=== PATIENT | female | born 1995 | race Caucasian/White ===

== ENCOUNTER 2021-04-15 11:19 | Observation (INO) | payer OTHER, SELFPAY ==
[2021-04-15] VITALS (7 sets, daily range): BP systolic 83–117; BP diastolic 58–82; PULSE 94–126; BMI 33.0
--- NOTE | 2021-04-15 12:40 | OBADM ---
This patient, Kinza Del Castillo, admitted to the OB room 118 at 1119 for observation for contractions. Patient/family oriented to hospital policies and general routines including ID bracelet, bed and alarms, visiting hours, pain management, procedures, bathroom and other care routines, personal items, smoking policy, room service/diet, and visiting hours. Patient/Family are encouraged to report perceived risks to care and to ask questions if they do not understand what they are told or what they should do.
[2021-04-15] MEDS: TERBUTALINE SULFATE 1 MG/ML VIAL 0.25 MG SUB-Q ×2 (12:43→17:31)
[2021-04-15] MEDS: NIFEdipine 10 MG CAPSULE PO (15:44)
[2021-04-15 15:58] LABS: Add Urine Microscopic? YES; Appearance Urine Clear (Clear); Bilirubin Urine Negative (Negative); Blood Urine Negative (Negative); Color Urine Colorless (Yellow); Glucose Urine UA Negative (Negative); Ketones Urine Trace mg/dL (Negative); Leukocyte Esterase Ur Negative LEU/UL (Negative); Nitrate Urine Negative (Negative); Protein Urine Negative (Negative); RBC Urine 0-2 /hpf (0-2); Squamous Epithelial Cell Urine Rare /hpf (Few); Urobilinogen Urine Negative mg/dL (<2.0); WBC Urine 0-3 /hpf
[2021-04-15 15:59] LABS: Specific Grav Ur 1.002 (1.001-1.035)
--- NOTE | 2021-04-25 07:38 | PM.OBTRLD ---
OB - Triage/Final Diagnosis Visit Information Comments/Additional reasons for admission: I have assessed the risk for this patient, Kinza Del Castillo, and determined that she would benefit from observation care. Evaluation Laboratory results: Laboratory Tests 04/15/21 15:47 Urine Color Colorless Urine Appearance Clear Urine pH 7.0 Ur Specific [place] 1.002 Urine Protein Negative Urine Glucose (UA) Negative Urine Ketones Trace Ur Blood (Man) Negative Urine Nitrate Negative Urine Bilirubin Negative Urine Urobilinogen Negative Leukocyte Esterase Rfl Negative Urine RBC 0-2 Urine WBC 0-3 Ur Squamous Epith Cells Rare Final Diagnosis (1) contractions: Code(s): O47.9 - False labor, unspecified Status: Acute
== END 2021-04-15 18:26 | disposition home or self-care (01) ==
PROVIDERS: Admitting Provider Obstetrics & Gynecology; Visit Provider Obstetrics & Gynecology
DX: O47.03 False labor before 37 completed weeks of gestation, third trimester (principal); Z3A.33 33 weeks gestation of pregnancy
CPT/HCPCS: 81001; 96372; A9270; G0378; G0379; J3105

== ENCOUNTER 2021-05-06 11:59 | Observation (INO) | payer OTHER, SELFPAY ==
--- NOTE | ~2021-05-06 | US_ITS ---
EXAMINATION: US OB limited w BPP DATE: 05/06/2021 13:39 INDICATION: Tachycardia. Third trimester. TECHNIQUE: Real-time pelvic ultrasound was performed. COMPARISON: None. FINDINGS: There is a single living fetus in vertex presentation. The placenta is anterior. heart rate is 154 beats per minute (bpm). The amniotic fluid index is 14.9 cm, which is normal. Biophysical profile performed by the technologist: breathing (30 sec sustained breathing in 30 minutes): 2 out of 2 movement (3 gross body movements in 30 minutes): 2 out of 2 tone (one episode of ppzsitj-zoizssxrg-drfujqv limb movement): 2 out of 2 Amniotic fluid pocket (2 cm): 2 out of 2 Total score: 8 out of 8 IMPRESSION: 1. Single living fetus in vertex presentation. 2. Biophysical profile 8 out of 8. Reviewed, dictated and finalized at location A.
[2021-05-06 12:45] VITALS: BP 114/73; PULSE 106
[2021-05-06 13:00] VITALS: BP 115/67; PULSE 92
[2021-05-06 13:15] VITALS: BP 111/62; PULSE 91
[2021-05-06 14:50] VITALS: BMI 33.7
--- NOTE | 2021-05-06 14:52 | OBADM ---
This patient, Kinza Del Castillo, admitted to the OB room OB Post 117 for observation. Patient/family oriented to hospital policies and general routines including ID bracelet, bed and alarms, visiting hours, pain management, procedures, bathroom and other care routines, personal items, smoking policy, room service/diet, and visiting hours. Patient/Family are encouraged to report perceived risks to care and to ask questions if they do not understand what they are told or what they should do.
--- NOTE | 2021-05-09 17:21 | PM.OBTRLD ---
OB - Triage/Final Diagnosis Visit Information Comments/Additional reasons for admission: I have assessed the risk for this patient, Kinza Del Castillo, and determined that she would benefit from observation care. Final Diagnosis (1) Maternal care for tachycardia during : Code(s): O36.8390 - Maternal care for abnormalities of the heart rate or rhythm, unspecified trimester, not applicable or unspecified Status: Acute
== END 2021-05-06 14:50 | disposition home or self-care (01) ==
PROVIDERS: Admitting Provider Obstetrics & Gynecology; Visit Provider Obstetrics & Gynecology
DX: O36.8390 Maternal care for abnormalities of the fetal heart rate or rhythm, unspecified trimester, not applicable or unspecified (principal); Z3A.00 Weeks of gestation of pregnancy not specified
CPT/HCPCS: 76815; 76819; G0378; G0379

== ENCOUNTER 2021-05-20 11:26 | Outpatient (RCR) | payer OTHER, SELFPAY ==
[2021-04-01 13:48] VITALS: BP 110/69; PULSE 91
[2021-05-13 19:06] VITALS: BP 101/72; PULSE 108
[2021-05-17 11:18] VITALS: BP 117/67; PULSE 108
[2021-05-20 11:53] VITALS: BP 111/67; PULSE 91
== END 2021-06-01 10:14 | disposition home or self-care (01) ==
LOC: ANHOBOP 11:26
PROVIDERS: Visit Provider Obstetrics & Gynecology
DX: O36.8330 Maternal care for abnormalities of the fetal heart rate or rhythm, third trimester, not applicable or unspecified (principal); Z3A.31 31 weeks gestation of pregnancy; Z3A.36 36 weeks gestation of pregnancy; Z3A.37 37 weeks gestation of pregnancy
CPT/HCPCS: 59025

== ENCOUNTER 2021-05-29 05:54 | Inpatient (IN) | payer OTHER, SELFPAY ==
[2021-05-02 10:37] VITALS: BMI 33.3
[2021-05-29] VITALS (105 sets, daily range): BP systolic 80–136; BP diastolic 30–82; PULSE 59–143; RESP 16; TEMP 36.6–36.9; O2SAT 73–100; BMI 34.0
--- NOTE | 2021-05-29 06:45 | LDADM ---
This patient, Kinza Del Castillo, was admitted to Labor/Delivery/Recovery 106 on 05/29/21 at 05:54. Plans for labor, pain management and were discussed with patient. Patient/family oriented to hospital policies and general routines including ID bracelet, bed and alarms, visiting hours, pain management, procedures, bathroom and other care routines, personal items, smoking policy, room service/diet and guest tray routines, security routines, and visiting hours. Patient/Family are encouraged to report perceived risks to care and to ask questions if they do not understand what they are told or what they should do. See OBIX for further documentation.
[2021-05-29 07:01] LABS: Basophils Percent Auto 0.4 % (0.2-1.2); Eosinophils Absolute Auto 0.2 K/mm3 (0-0.3); Eosinophils Percent Auto 1.6 % (0-4.4); Hemoglobin 11.3 g/dL (12.0-15.0); Immature Granulocyte Absolute 0.06 K/mm3 (0.00-0.031); Immature Granulocyte Percent A 0.6 % (0-0.5); Lymphocytes Absolute Auto 2.33 K/mm3 (0.9-3.2); Lymphocytes Percent Auto 24.3 % (18.3-44.2); Mean Corpuscular HGB Conc 32.3 g/dl (32-36); Mean Corpuscular Hemoglobin 25.9 pg (26-34); Mean Corpuscular Volume 80.3 fl (80-100); Mean Platelet Volume 9.2 fl (7.4-10.4); Monocytes Absolute Auto 0.7 K/mm3 (0.1-0.6); Monocytes Percent Auto 7.3 % (2.6-8.5); Neutrophils Absolute Auto 6.3 K/mm3 (1.3-6.7); Neutrophils Percent Auto 65.8 % (45.5-73.1); Platelet Count Result 322 k/mm3 (150-375); Red Blood Count 4.36 M/mm3 (4.2-5.4); Red Cell Distribution Width 13.8 % (11.5-14.5); White Blood Count 9.6 K/mm3 (4.5-10.0)
[2021-05-29] MEDS: OXYTOCIN 30 UNITS/NS 500 ML 30 UNITS/500 ML BAG IV CONT (07:20)
[2021-05-29] MEDS: LACTATED RINGERS 1,000 ML 125 ML IV CONT ×2 (07:20→12:42)
--- NOTE | 2021-05-29 08:06 | PM.IMHP ---
H&P: HPI History of Present Illness Date/Time: 05/29/21 08:06 Everardo is a 25yo @ 39.0wks (BRODY 06/05/21) who presents for induction of labor. She has had regular care with Benjamín BOSTON. She reports good movement. Irregular ctx. No VB or LOF. Her has been complicated by: - H/o pyelectasis; resolved in 3rd trimester, normal fluid/growth - Intermittent tachycardia; s/p normal ANT Chief Complaint: Induction of labor Review of Systems Review of Systems: All systems reviewed & are unremarkable except as noted in HPI and below (HPI) [facility] Family History Family History Other Unknown family medical history Social History Social History Smoking status: Former smoker Tobacco type: cigarettes and e-cigarettes/vaping Second hand tobacco smoke exposure: No Smoking end date: 12/28/20 Substance use: never Gender identity (if verbalized by the patient): Female Sexual Orientation (if Verbalized by the Patient): Straight or Heterosexual Spiritual care concerns: No Meds Home Medications and Allergies Home Medications Medication Instructions Recorded Confirmed Type tablet PO 05/03/21 History Allergies Allergy/AdvReac Type Severity Reaction Status Date / Time No Known Allergies Allergy Unverified 10/27/16 13:39 Vital Signs Vital Signs - 24 hr 05/29/21 06:14 05/29/21 06:16 05/29/21 06:17 Pulse Rate 111 H 121 H Blood Pressure 136/75 132/82 Pulse Oximetry 86 L 82 L 05/29/21 06:20 05/29/21 06:25 05/29/21 06:30 Pulse Rate Blood Pressure Pulse Oximetry 91 91 92 05/29/21 06:31 05/29/21 06:35 05/29/21 06:40 Pulse Rate 111 H Blood Pressure 126/73 Pulse Oximetry 94 92 05/29/21 06:42 05/29/21 06:46 05/29/21 07:01 Pulse Rate 110 H 105 H Blood Pressure 133/75 117/61 Pulse Oximetry 83 L 05/29/21 07:16 05/29/21 07:31 05/29/21 08:01 Pulse Rate 97 91 92 Blood Pressure 121/67 123/73 123/81 Pulse Oximetry Exam Const: General: cooperative, healthy appearing, comfortable and no acute distress Resp: Effort & Inspection: normal respiratory effort and able to speak in complete sentences Cardio: Rate: regular rate GI: Inspection: normal to inspection and non-distended GI Palp: No abdominal tenderness and Yes Soft to palpation : Other: FHT's: 150's/ mod kwadwo/ + accels/ no decels - cat 1 TOCO: ctxq2-4min Cervix: 1.5/50/-2 Membranes: intact, GBS neg Presentation: cephalic Skin: General skin exam: normal color Neuro: General: patient oriented x3 Extrem: General: normal to inspection Psych: Appearance: grossly normal Affect: normal affect Attitude: cooperative H&P: Results Labs Labs: Short CBC 05/29/21 Range/Units 06:54 WBC 9.6 (4.5-10.0) K/mm3 Hgb 11.3 L (12.0-15.0) g/dL Hct 35.0 L (37.0-47.0) % Plt Count 322 (150-375) k/mm3 Assessment and Plan Assessment and plan (1) Encounter for induction of labor: Code(s): Z34.90 - Encounter for supervision of normal , unspecified, unspecified trimester Status: Acute (2) : Qualifiers: Weeks of gestation: 39 weeks Qualified Code(s): Z3A.39 - 39 weeks gestation of Code(s): Z34.90 - Encounter for supervision of normal , unspecified, unspecified trimester Status: Acute Additional Plan - Induction of labor - Pitocin induction per protocol - Continuous monitoring; currently reassuring - GBS neg - Anesthesia consult PRN pain
--- NOTE | 2021-05-29 08:23 | WPDHPUPDATE1 ---
History and Physical Update Update Date/Time: 05/29/21 08:23 History and Physical has been reviewed, including an updated exam of the patient. There are NO changes in the patient's condition. Risks, benefits, and alternatives have been discussed and questions answered. Patient agrees to proceed with procedure.
--- NOTE | 2021-05-29 10:32 | P.PNAN_ITS ---
Anes - Eval Pre Procedure Procedure: labor epidural Date/Time: 05/29/21 10:32 Surgeon: isaak Pre Op Diagnosis: IOL Patient Data Age: 25 Gender: F Height: 1.63 m Weight: 90 kg Last Vital Signs Pulse 87 05/29/21 10:31 BP 128/71 05/29/21 10:31 Pulse Ox 83 L 05/29/21 06:42 Allergies Allergy/AdvReac Type Severity Reaction Status Date / Time No Known Allergies Allergy Unverified 10/27/16 13:39 Home Medications Medication Instructions Recorded Confirmed Type tablet PO 05/03/21 History Laboratory Tests 05/29/21 05/29/21 05/29/21 06:54 06:54 06:54 WBC 9.6 K/mm3 K/mm3 (4.5-10.0) RBC 4.36 M/mm3 M/mm3 (4.2-5.4) Hgb 11.3 g/dL L g/dL (12.0-15.0) Hct 35.0 % L % (37.0-47.0) MCV 80.3 fl fl (80-100) MCH 25.9 pg L pg (26-34) MCHC 32.3 g/dl g/dl (32-36) RDW 13.8 % % (11.5-14.5) Plt Count 322 k/mm3 k/mm3 (150-375) MPV 9.2 fl fl (7.4-10.4) Immature Gran % (Auto) 0.6 % H % (0-0.5) Neut % (Auto) 65.8 % % (45.5-73.1) Lymph % (Auto) 24.3 % % (18.3-44.2) Weld % (Auto) 7.3 % % (2.6-8.5) Eos % (Auto) 1.6 % % (0-4.4) Baso % (Auto) 0.4 % % (0.2-1.2) Lymph # (Auto) 2.33 K/mm3 K/mm3 (0.9-3.2) Weld # (Auto) 0.7 K/mm3 H K/mm3 (0.1-0.6) Eos # (Auto) 0.2 K/mm3 K/mm3 (0-0.3) Baso # (Auto) 0.0 K/mm3 K/mm3 (0.0-0.1) Abs Immat Gran (auto) 0.06 K/mm3 H K/mm3 (0.00-0.031) Absolute Neuts (auto) 6.3 K/mm3 K/mm3 (1.3-6.7) Absolute Nucleated RBC 0.0 K/mm3 K/mm3 (0.0-0.012) Nucleated RBC % 0.0 % % (0.0-0.2) RPR Pending Blood Type O Positive Antibody Screen Negative Patient hx anesthesia problems: none Family hx anesthesia problems: none [facility] Family History Family History Other Unknown family medical history Social History Social History Smoking status: Former smoker Tobacco type: cigarettes and e-cigarettes/vaping Second hand tobacco smoke exposure: No Smoking end date: 12/28/20 Substance use: never Gender identity (if verbalized by the patient): Female Sexual Orientation (if Verbalized by the Patient): Straight or Heterosexual Spiritual care concerns: No Exam Day of Procedure 05/29/21 10:32
--- NOTE | 2021-05-29 12:32 | PM.OBPNLAB ---
Pain Control Date/time seen: 05/29/21 12:32 Pain control: tolerating well Comments: wanting epidural Pelvic Exam Dilation (cm): 3 (.5) Effacement (%): 50 station: -2 Amniotic membrane status: Ruptured (AROM, clear 1230) Contractions Monitor mode: External Contraction frequency: 3 Contraction pattern: Regular Status status: Category l Assessment and Plan Pitocin rate (mU/min): 10 Assessment: induction ongoing Plan: continuous present management Comments: - epidural for pain control
--- NOTE | 2021-05-29 17:56 | PM.OBPRVD ---
OB - Delivery Note Procedure Delivery date: 05/29/21 events: Labor Induction Intrapartal events: Deceleration Induction method: per pitocin protocol Delivery augmentation: rupture of membranes Delivery monitor: external FHT and external uterine Route of delivery: Laceration Description: Perineal - 1st Degree Delivery repair: vicryl Quantitative Blood Loss (ml): 150 Anesthesia type: Epidural Disposition: floor Baby Date of : 05/29/21 Time of : 17:36 Weeks of gestation at delivery: 39 gender: Male Weight (pounds): 7 Weight (ounces): 8 presentation: vertex position: Left Occiput Anterior Placenta delivery description: Expressed cord vessel description: 3 Vessels, Nuchal Cord, Loose, Reduced and Delayed Cord Clamping score one minute: 9 score five minutes: 9 Narrative: heart decelerations were noted, and the patient was examined and found to be completely dilated. With good maternal effort and after pushing for two contractions, she delivered the head over intact perineum. A loose nuchal cord was palpated and reduced. She then delivered the shoulders and body without difficulty. Spontaneous cry was noted. The was immediately placed skin to skin. Delayed cord clamping was performed. The umbilical cord was then clamped and cut. With Pitocin running and gentle downward traction on the cord, the placenta delivered without complications. Bimanual massage was performed and good uterine tone with minimal bleeding were noted. The cervix, vagina, perineum were examined and a first-degree perineal laceration was noted. The laceration was repaired in the normal fashion using 2 0 Vicryl. Good fundal tone and minimal bleeding were noted. Sponge, lap, instrument, and needle counts were correct at the end of the procedure. Mom and baby were left bonding in the birthing suite in a stable condition.
[2021-05-29] MEDS: OXYTOCIN 30 UNITS/NS 500 ML 30 UNITS/500 ML BAG 125 UNITS IV CONT (18:05)
[2021-05-29] MEDS: WITCH HAZEL 40 PADS 1 PAD TOPICAL (20:53)
[2021-05-29] MEDS: BENZOCAINE 20% AER SPR (*SP) 56 GM CAN 1 SPRAY TOPICAL (20:53)
--- NOTE | 2021-05-29 21:07 | PC.NURSE ---
Patient transferred to post room #288 via wheelchair. Support person present. Oriented to unit, room, information board, rooming in, admission packet and security measures. Patient verbalizes understanding.
[2021-05-30 00:25] VITALS: BP 104/65; PULSE 81; RESP 16; TEMP 36.6
[2021-05-30 03:30] VITALS: BP 112/69; PULSE 88; RESP 16; TEMP 36.3
[2021-05-30 04:38] LABS: Hematocrit 34.5 % (37.0-47.0); Hemoglobin 10.9 g/dL (12.0-15.0)
[2021-05-30 08:15] VITALS: BP 122/64; PULSE 93; RESP 18; TEMP 36.3
--- NOTE | 2021-05-30 08:19 | WPDANLDPN2 ---
Anes-Prog Note L&D Date/Time: 05/30/21 08:19 Comfortable throughout: labor and delivery Neuraxial method: epidural Epidural/Spinal procedure site: clean & non-tender Neuro status: Neuro function grossly intact. Cardiovascular status: normal Respiratory status: normal Airway patency: baseline Mental status: baseline Post-Op hydration status: normal Vital Signs: Last Vital Signs Temp 36.3 C L 05/30/21 03:30 Pulse 88 05/30/21 03:30 Resp 16 05/30/21 03:30 BP 112/69 05/30/21 03:30 Pulse Ox 76 L 05/29/21 14:42 Pain score (VAS): 3 I/O: Intake & Output 05/29/21 05/30/21 05/30/21 23:59 07:59 15:59 Intake Total 2000 Output Total 175 Balance 1825 Post-procedural complaints: none Patient feedback: Patient satisfied with anesthetic care.
[2021-05-30] MEDS: MULTIVIT/MIN/PREN/FOL AC/IRON TABLET 1 TAB PO (08:21)
[2021-05-30] MEDS: TETANUS,DIPHTHERIA,AC PERTUSSIS ADULT (0.5 ML) BOOSTRIX IM (08:21)
[2021-05-30 11:45] VITALS: BP 123/78; PULSE 68; RESP 18; TEMP 36; O2SAT 98
--- NOTE | 2021-05-30 11:50 | PM.OBPNVD ---
OB - PN: Subj Subjective Date/time seen: 05/30/21 11:45 PPD#1 Kinza reports doing well today. She reports her bleeding is light. She has tolerated regular diet. Has ambulated w/o symptoms of anemia. She is voiding and passing gas. She is breast/bottle feeding. She would like to have her son circumcised. She would like to go home @ 24hrs PP. She denies CP, DIALLO, vision changes, fever, chills, N/V, dizziness or palpitations. OB - PN: Obj Data Labs CBC & Chem 7: 05/30/21 03:39 Labs: Laboratory Results - last 24 hr 05/30/21 03:39 Hgb 10.9 L Hct 34.5 L OB - PN A/P Assessment and Plan (1) Vaginal delivery: Code(s): O80 - Encounter for full-term uncomplicated delivery Status: Acute Plan day: 1 Plan: routine care and discharge home Comments: - F/u in 4wks - ER return precautions: fever, bleeding, HTN, n/v/abd pain - Pelvic rest, take meds as prescribed Time Spent With Patient Time: Total time spent is greater than 50% in coordination of care (as documented) at patient's floor/unit and/or counseling patient: Review of Systems Review of Systems: All systems reviewed & are unremarkable except as noted in HPI and below (HPI) Exam Const: General: cooperative, healthy appearing, comfortable and no acute distress Resp: Effort & Inspection: normal respiratory effort and able to speak in complete sentences Auscultation: clear to auscultation bilaterally Cardio: Rate: regular rate GI: Inspection: normal to inspection and non-distended GI Palp: No abdominal tenderness and Yes Soft to palpation Auscultation: normal bowel sounds : Other: fundus firm Skin: General skin exam: normal color Neuro: General: patient oriented x3 Extrem: General: normal to inspection Psych: Appearance: grossly normal Affect: normal affect Attitude: cooperative
[2021-05-30 16:00] VITALS: BP 123/70; PULSE 75; RESP 16; TEMP 36.8; O2SAT 96
[2021-05-31 08:04] LABS: Rapid Plasma Reagin Non-Reactive (NonReactive)
[2021-05-31 15:05] VITALS: BP 114/69; PULSE 85; RESP 18; TEMP 36.8; O2SAT 100
--- NOTE | 2021-06-18 15:38 | PM.OBDSVD ---
DS: Admitting Diagnosis Admitting Diagnosis induction of labor DS: Discharge Diagnosis Discharge Diagnosis (1) Vaginal delivery: Code(s): O80 - Encounter for full-term uncomplicated delivery Status: Acute OB - DS: Summary OB Procedures : NST and Ultrasound OB Procedures Intrapartum: Spontaneous Vag Delivery OB Procedures: : None Peripartum Data Infant Delivery Method: Natural Vaginal Laceration Description: Perineal - 1st Degree complications: none 1: Gender: Male Disposition of : home Status at Discharge Functional status at discharge: independent ambulation Overall status at discharge: patient is back to baseline Time Spent with Patient Time attestation: Total time spent providing and/or coordinating discharge services: Exam Const: General: cooperative, healthy appearing, comfortable and no acute distress Resp: Effort & Inspection: normal respiratory effort Auscultation: clear to auscultation bilaterally Cardio: Rate: regular rate GI: Inspection: normal to inspection and non-distended GI Palp: No abdominal tenderness and Yes Soft to palpation Auscultation: normal bowel sounds : Other: fundus firm Skin: General skin exam: normal color Neuro: General: patient oriented x3 Extrem: General: normal to inspection Psych: Appearance: grossly normal Affect: normal affect Attitude: cooperative Discharge Plan Discharge Attending physician on discharge: Batsheva Copeland Discharging Clinician: Batsheva Copeland Anticipated Discharge Date/Time: 05/30/21 18:00 Patient Disposition: Home, Self-Care Activity: pelvic rest Diet: regular Discharge Instructions: Education: Mom and Baby Guide Given to: Mother Follow-Up: Call your delivering provider's office for an appointment to be seen in: 4 Weeks Mom and baby should come to the [facility] for the follow-up appointment. Appointment Date/Time: May 31, 2021 at 2:30 pm What to expect at your follow-up visit: Physical Assessment Call [phone] if you are unable to keep your appointment time. BREAST CARE: * Wear a snug supportive bra. * For engorgement discomfort: Breast Feeding: * Apply warm moist washcloths * Express milk as needed to relieve engorgement * Wear loose clothing * For sore nipples: * Identify correct latch-on * Apply warm moist washcloths before and after nursing * Air dry nipples after nursing * May apply Lansinoh cream to nipples EPISIOTOMY/PERINEAL CARE: * Until bleeding stops, use your rodolfo bottle after urinating * Change your pad frequently throughout the day * You may take sitz baths several times a day (fill your bathtub with warm water and soak for 20 minutes.) Do NOT bathe in the water * No tub baths until seen by your physician - You may shower ACTIVITY: * Rest as much as possible. * Do not exercise or lift anything heavier than your baby (such as laundry or other children.) * Avoid stairs or driving as much as possible. * Do not put anything into the vagina. No douching, tampons, or sexual activity until seen by physician. NOTIFY PHYSICIAN IF YOU HAVE ANY QUESTIONS OR IF ANY OF THE FOLLOWING SYMPTOMS OCCUR: * If your episiotomy or incision becomes red, swollen, or more painful than what you have experienced in the hospital. * If your vaginal bleeding becomes foul smelling. * If your vaginal bleeding becomes more heavy than a period or if your bleeding changes from pink to bright red. However, you may pass an occasional walnut-sized clot once or twice for the first week . * If you experience a sharp, shooting pain in you calves. * If you discover a hard, reddened area on your breast or if you experience flu-like symptoms. DIET: * Eat regular, well-balanced meals. * Drink plenty of fluids daily. If , drink to
== END 2021-05-30 18:55 | disposition home or self-care (01) | DRG 560 ==
LOC: ANHLDR 05:59 → ANHOB2 21:29
PROVIDERS: Admitting Provider Obstetrics & Gynecology; Visit Provider Obstetrics & Gynecology
DX: O76 Abnormality in fetal heart rate and rhythm complicating labor and delivery (principal); O70.0 First degree perineal laceration during delivery; O69.81X0 Labor and delivery complicated by cord around neck, without compression, not applicable or unspecified; Z3A.39 39 weeks gestation of pregnancy; Z37.0 Single live birth; Z87.891 Personal history of nicotine dependence
CPT/HCPCS: 36415; 85014; 85018; 85025; 86592; 86850; 86900; 86901; 90715; A9270; J2590; J2795; J7120

== ENCOUNTER 2022-09-12 15:59 | Emergency (ER) | payer OTHER, SELFPAY ==
[2022-09-12 16:06] VITALS: BP 134/80; PULSE 93; RESP 14; TEMP 36.7; O2SAT 98
--- NOTE | 2022-09-12 16:12 | ED.EAR ---
HPI - Ear Problem General Chief complaint: Ear Stated complaint: Ear Pain Time Seen by Provider: 09/12/22 16:13 Source: patient and RN notes reviewed History of Present Illness HPI Narrative: patient is a 26-year-old female who presents to urgent care with complaints of right ear pain since Monday. Patient states she has been taking Tylenol without much relief. Denies any other upper respiratory complaints. Denies a fever, nausea, vomiting or headache. No other acute complaints. No acute distress noted. Patient aware of the plan of care. Some parts of this dictation were generated by voice recognition software and may contain typographical and/or grammatical inaccuracies. Related Data Home Medications Medication Instructions Recorded Confirmed medroxyprogesterone 150 mg/mL 150 mg IM [id number] 03/10/22 09/12/22 intramuscular suspension (Depo-Provera) Allergies Allergy/AdvReac Type Severity Reaction Status Date / Time No Known Allergies Allergy Verified 09/12/22 16:13 Review of Systems Review of Systems: CONSTITUTIONAL: Denies fever, chills, or sweats. EYES: Denies visual changes, redness, or discharge. ENT: Denies rhinorrhea, congestion, sore throat . Reports a right otalgia CARDIOVASCULAR: Denies chest pain, palpitations, or edema. RESPIRATORY: Denies cough or dyspnea. GASTROINTESTINAL: Denies abdominal pain, nausea, vomiting, or diarrhea. GENITOURINARY: Denies dysuria or hematuria. SKIN: Denies rash or itching. MUSCULOSKELETAL: Denies back pain, joint pain, or myalgia. NEUROLOGIC: Denies headache, numbness, or weakness. All other systems reviewed are negative, except as documented in HPI. [facility] Past Medical History Medical History (Updated 09/12/22 @ 16:24 by LIZ Durbin) Surveillance for Depo-Provera contraception Family History Family History Other Unknown family medical history Social History Social History Smoking status: Former smoker Tobacco type: cigarettes and e-cigarettes/vaping Second hand tobacco smoke exposure: No Smoking end date: 12/28/20 Substance use: never Gender identity (if verbalized by the patient): Female Sexual Orientation (if Verbalized by the Patient): Straight or Heterosexual Spiritual care concerns: No Comments At the time of my signature, I reviewed and agree with the nursing past medical, surgical, social, and family history. There is no relevant family history pertinent to the patient complaint. Exam Narrative: GENERAL: This is a well-nourished, well-developed patient, in no apparent distress. HEAD: normocephalic, atraumatic. EYES: PERRL. Sclera clear/white. Vision is grossly intact. EARS: External ears normal, auditory canals clear and without drainage, mild a station tube dysfunction to the right. BilateralTMs normal without perforation. Hearing grossly intact. NOSE: External nose normal with no obvious nasal discharge, nares without redness, no rhinorrhea. THROAT: Mucous membranes moist, posterior pharynx clear. NECK: Neck supple CARDIOVASCULAR: Regular rate and rhythm without murmurs, gallops, or rubs. RESPIRATORY: Clear to auscultation. Breath sounds equal bilaterally. No wheezes, rales, or rhonchi. SKIN: warm, intact with no suspicious lesions or rash, good texture and turgor. NEURO: awake, alert, and oriented to person, place and time. There were no obvious focal neurologic abnormalities. EXTREMITIES: No clubbing, cyanosis, or edema. Course Course Level of Care: Express Care Visit Vital Signs Vital signs: Vital Signs Temperature 98.1 F 09/12/22 16:06 Pulse Rate 93 09/12/22 16:06 Respiratory Rate 14 09/12/22 16:06 Blood Pressure 134/80 09/12/22 16:06 Pulse Oximetry 98 09/12/22 16:06 Oxygen Delivery Room Air 09/12/22 16:06 Temperature 98.1 F 09/12/22 16:06 Pulse Rate 93 09/12/22 16:06 Respiratory Rate 14 09/12/22 16:
== END 2022-09-12 16:34 | disposition home or self-care (01) ==
PROVIDERS: Emergency Provider Nurse Practitioner Family
DX: H92.01 Otalgia, right ear (principal); F17.219 Nicotine dependence, cigarettes, with unspecified nicotine-induced disorders; F17.290 Nicotine dependence, other tobacco product, uncomplicated
CPT/HCPCS: 99213; G0463

== ENCOUNTER 2023-06-01 08:52 | Outpatient (CLI) | payer OTHER, SELFPAY | END 2023-06-01 08:53 | disposition home or self-care (01) | PROVIDERS: Visit Provider Obstetrics & Gynecology | DX: R10.2 Pelvic and perineal pain (principal); R30.0 Dysuria | CPT/HCPCS: 87086 ==

== ENCOUNTER 2024-05-15 10:32 | Emergency (ER) | payer OTHER, SELFPAY ==
[2024-05-15 10:37] VITALS: BP 130/76; PULSE 79; RESP 16; TEMP 36.9; O2SAT 100
--- NOTE | 2024-05-15 11:17 | ED.EAR ---
HPI - Ear Problem General Chief complaint: Ear Stated complaint: ear pain Time Seen by Provider: 05/15/24 11:10 Source: patient and RN notes reviewed Mode of arrival: ambulatory Limitations: no limitations History of Present Illness HPI Narrative: Patient presents today complaining of a one-week history of left ear muffling, with pain that started yesterday. Denies any additional symptoms to include congestion, rhinorrhea, cough, fever, sore throat. Currently rates her pain 12/09 has been taking ibuprofen and using a swimmer's ear drops without relief Related Data Home Medications Medication Instructions Recorded Confirmed levonorgestrel 21 mcg/24 hr (up to 1 device intrauterine ONCE 11/30/22 05/15/24 8 years) 52 mg intrauterine device (Mirena) Allergies Allergy/AdvReac Type Severity Reaction Status Date / Time No Known Allergies Allergy Verified 05/15/24 10:48 Review of Systems Review of Systems: CONSTITUTIONAL: Denies body aches, fever, chills, or sweats. EYES: Denies visual changes, redness, or discharge. ENT: Denies rhinorrhea, congestion, sore throat. + left ear pain and muffling CARDIOVASCULAR: Denies chest pain, palpitations, or edema. RESPIRATORY: Denies cough or dyspnea. GASTROINTESTINAL: Denies abdominal pain, nausea, vomiting, or diarrhea. GENITOURINARY: Denies dysuria or hematuria. SKIN: Denies rash, itching, or wounds. MUSCULOSKELETAL: Denies back pain, joint pain, or myalgia. NEUROLOGIC: Denies headache, numbness, tingling, or weakness. PSYCH: Denies depression or anxiety. [facility] Past Medical History Medical History Encounter for insertion of mirena IUD 11/30/2022 Sexually transmissible disease Surveillance for Depo-Provera contraception Family History Family History Other Unknown family medical history Social History Social History Smoking status: Current some day smoker Tobacco type: e-cigarettes/vaping Second hand tobacco smoke exposure: No Smoking end date: 12/28/20 Alcohol intake: never Substance use: never Substance use type: does not use Current Housing: Decline to Answer Concerned About Future Housing: Decline to Answer Difficulty Paying Gas/Electric Bills: Decline to Answer Difficulty Paying for Meds: Decline to Answer Currently Unemployed: Decline to Answer Education: Decline to Answer Difficulty w/ Childcare or Family Care: Decline to Answer Living arrangements: with family Occupation/Education: unemployed Gender identity (if verbalized by the patient): Female Sexual Orientation (if Verbalized by the Patient): Straight or Heterosexual Spiritual care concerns: No Comments At time of signature, I have reviewed and agree with nursing past medical, surgical, social and family history unless otherwise noted. Please see nursing chart for further information. There is no relevant family history pertinent to the presenting complaint Exam Narrative: GENERAL: Well-appearing, well-nourished, and in no acute distress. HEAD: Normocephalic, atraumatic. EYES: EOMI. No redness or drainage. Conjunctivae normal. ENT: Mucous membranes pink and moist. Nares clear. No rhinorrhea. Right TM normal. Left TM with mild serous effusion without evidence of bacterial infection. NECK: Normal AROM. CHEST: No respiratory distress. EXTREMITIES: Normal range of motion. No edema. SKIN: Warm, dry, no rash. Capillary refill normal. Normal skin turgor. NEURO: No focal deficits. Alert and oriented x3. Gait steady. PSYCH: Normal affect. No signs of depression or anxiety. Course Course Level of Care: Express Care Visit Vital Signs Vital signs: Vital Signs Temperature 98.4 F 05/15/24 10:37 Pulse Rate 79 05/15/24 10:37 Respiratory Rate 16 05/15/24 10:
== END 2024-05-15 11:22 | disposition home or self-care (01) ==
PROVIDERS: Emergency Provider Nurse Practitioner
DX: H65.02 Acute serous otitis media, left ear (principal); F17.290 Nicotine dependence, other tobacco product, uncomplicated
CPT/HCPCS: 99211; G0463

== ENCOUNTER 2025-01-27 01:43 | Day surgery (SDC) | payer OTHER, SELFPAY ==
[2025-01-15 09:31] VITALS: BMI 31.8
--- NOTE | 2025-01-15 09:48 | PC.NURSE ---
Report to the Outpatient Waiting Room, entrance under the green pavilion located off [facility], at time 0600 on date 01/27/25. Planned Procedure Time: 0730.? Time changes happen often and if your time is changed the preop area will call you the afternoon before. - You and your visitor will be asked to self-screen and do not enter if you have any COVID symptoms. Please call surgeon if you need to reschedule. - A mask is optional within the hospital at this time. Patients may have clear liquids (water, carbonated beverages, clear teas, apple juice) until 3 hours prior to surgery with a maximum of 20 ounces. - No food from midnight until time of surgery and no smoking, or chewing tobacco (or any form of nicotine). No chewing gum, candy or mints. Take only the following medications with a SIP of water on the morning of surgery: N/A DO NOT STOP ANY OF YOUR OTHER PRESCRIPTION MEDICATIONS PRIOR TO SURGERY EXCEPT THE FOLLOWING Hold all vitamins and supplements for 3 days per anesthesiologist. Medications to discontinue per physician: Vitamins- 3 days Date to take last dose: 01/23/25 Please no make-up, nail cayman islander, hairspray, perfume, deodorant, or body powder the day of surgery.? No jewelry (including any body piercings) or valuables the day of surgery, leave them at home.? Please take a shower or bath the night before, or the morning of, surgery with an antibacterial soap.? Wear comfortable, loose fitting clothing.? - Jewelry must be removed prior to entering the operating room.? Rings and piercings that are not removed may be cut off. - The hospital will not accept responsibility for valuables.? - Please leave all valuables, including medications, at home the day of surgery. If you are going home after surgery, a licensed driver sales must drive you home.? - NO public transportation without another adult if you receive anesthesia. - We recommend that an adult stay with you for 24 hours following discharge. - We also recommend that you do not drive, make important decision, drink alcoholic beverages, or take any drugs that were not prescribed by your health care provider for at least 24 hours after your discharge time. Follow any additional instructions given to you from your surgeon. Telephone instructions given to patient and asked if any additional questions and then verbalized understanding. Patient advised to call surgeon office or pre surgery nurse liaison [phone] if any additional questions.
--- NOTE | 2025-01-24 19:16 | WPDANESEPP ---
Anes - Eval Pre Procedure Procedure: Operation Date: 01/27/25 07:30 Proposed Procedures p Laparoscopic Bilateral Salpingectomy - Batsheva Copeland MD Date/Time: 01/24/25 19:16 Pre Op Diagnosis: desired sterilization Patient Data Age: 29 Gender: F Height: 1.63 m Weight: 84.09 kg Allergies Allergy/AdvReac Type Severity Reaction Status Date / Time No Known Allergies Allergy Verified 01/15/25 09:30 Home Medications ?Medication ?Instructions ?Recorded ?Confirmed ?Type levonorgestrel (Mirena) 1 device intrauterine ONCE 11/30/22 01/15/25 History multivitamin (Daily Multi-Vitamin 1 tablet PO DAILY 01/15/25 01/15/25 History tablet) Patient hx anesthesia problems: none Family hx anesthesia problems: none Results Review: All pre-operative results and documents have been reviewed as part of the pre-operative evaluation. [facility] Past Medical History Medical History (Updated 01/24/25 @ 19:17 by Manasa Montes CRNA) Back pain Asthma Obesity Migraines, neuralgic Sexually transmissible disease Encounter for insertion of mirena IUD 11/30/2022 Surveillance for Depo-Provera contraception Family History Family History Other Unknown family medical history Social History Social History (Updated 11/26/24 @ 15:14 by Kei Glass MA) Smoking status: Current every day smoker Tobacco type: e-cigarettes/vaping Second hand tobacco smoke exposure: No Smoking end date: 12/28/20 Alcohol intake: former Alcohol use details: rarely Substance use: never Substance use type: does not use Do You Feel Safe in your Home?: Yes Lack of Transportation: No Lack of Food: Never True Current Housing: I Have Housing Concerned About Future Housing: No Difficulty Paying Gas/Electric Bills: No Difficulty Paying for Meds: No Currently Unemployed: No Education: High School Diploma/GED Difficulty w/ Childcare or Family Care: No Living arrangements: with family Occupation/Education: occupation Additional occupation/education comments: [employer] Gender identity (if verbalized by the patient): Female Sexual Orientation (if Verbalized by the Patient): Straight or Heterosexual Spiritual care concerns: No Exam Day of Procedure 01/24/25 19:16
--- NOTE | 2025-01-26 20:11 | PM.IMHP ---
H&P: HPI History of Present Illness Date/Time: 01/26/25 20:11 Chief Complaint: sterilization Narrative: Kinza is a 29yo P2002, who presents for surgery for sterilization. At her WWE she desires to schedule surgery; she has a normal pap 10/2023. She has a Mirena IUD in place since 11/2022. She denies any cycles. No pelvic pain. No bothersome vaginal issues. She denies any breast issues. Sexually active w/o issue. She is wondering if we could proceed with surgery for sterilization; as she and her BF do not want any more children; wants to keep IUD in place. Review of Systems Constitutional: Constitutional: Denies chills, Denies fever(s) and Denies headache(s) Eyes: Eyes: Denies change in vision ENT: Denies dizziness and Denies headache(s) Cardiovascular: Cardiovascular: Denies chest pain and Denies dyspnea Respiratory: Respiratory: Denies cough and Denies dyspnea Gastrointestinal: Gastrointestinal: Denies abdominal pain and Denies change in stool character Genitourinary: Genitourinary: Denies abnormal menses, Denies pelvic pain, Denies vaginal discharge, Denies vaginal odor and Denies vaginal pruritus Neurologic: Denies dizziness and Denies headache(s) Psychiatric: Psychiatric: Denies anxiety and Denies depression PMF Past Medical History Medical History (Updated 01/26/25 @ 20:17 by Batsheva Copeland MD) Back pain Asthma Obesity Migraines, neuralgic Sexually transmissible disease Encounter for insertion of mirena IUD 11/30/2022 Surveillance for Depo-Provera contraception Family History Family History Other Unknown family medical history Social History Social History (Updated 11/26/24 @ 15:14 by Kei Glass MA) Smoking status: Current every day smoker Tobacco type: e-cigarettes/vaping Second hand tobacco smoke exposure: No Smoking end date: 12/28/20 Alcohol intake: former Alcohol use details: rarely Substance use: never Substance use type: does not use Do You Feel Safe in your Home?: Yes Lack of Transportation: No Lack of Food: Never True Current Housing: I Have Housing Concerned About Future Housing: No Difficulty Paying Gas/Electric Bills: No Difficulty Paying for Meds: No Currently Unemployed: No Education: High School Diploma/GED Difficulty w/ Childcare or Family Care: No Living arrangements: with family Occupation/Education: occupation Additional occupation/education comments: [employer] Gender identity (if verbalized by the patient): Female Sexual Orientation (if Verbalized by the Patient): Straight or Heterosexual Spiritual care concerns: No Meds Home Medications and Allergies Home Medications ?Medication ?Instructions ?Recorded ?Confirmed ?Type levonorgestrel (Mirena) 1 device intrauterine ONCE 11/30/22 01/15/25 History multivitamin (Daily Multi-Vitamin 1 tablet PO DAILY 01/15/25 01/15/25 History tablet) Allergies Allergy/AdvReac Type Severity Reaction Status Date / Time No Known Allergies Allergy Verified 01/15/25 09:30 Exam Const: General: cooperative, comfortable, no acute distress and obese Orientation/consciousness: patient oriented x3 Resp: Effort & Inspection: normal respiratory effort Cardio: Rate: regular rate GI: Inspection: normal to inspection GI Palp: No abdominal tenderness and Yes Soft to palpation : Other: deferred to OR Skin: General skin exam: normal color Neuro: General: patient oriented x3 Extrem: General: normal to inspection Psych: Appearance: grossly normal Affect: normal affect Attitude: cooperative Assessment and Plan Assessment and plan (1) Admission for sterilization: Code(s): Z30.2 - Encounter for sterilization Status: Acute Plan - Pt desires to schedule laparoscopic bilateral salpingectomy. Risks and benefits discussed in detail including but not limited to pain, bleeding, injury to nearby structures including bowels, bladder, ovaries, blood vessels, nerves. Discussed that this is permanent sterilization and women under 30yo do have an increased risk of regret of the procedure. She understands of the other types of contraception including vasectomy but desires to proceed with complete removal of her fallopian tubes.
[2025-01-27] VITALS (10 sets, daily range): BP systolic 90–114; BP diastolic 52–70; PULSE 65–85; RESP 14–20; TEMP 36.7; O2SAT 94–99
--- OUTSIDE RECORDS SUMMARY | 2025-01-27 01:45 | XMS_ITS | Referral Summary ---
Author Organization [facility] Address [address] [place] [address] Care Team Providers Care Rn Field Case Manager Name Role Phone No, Physician Primary Care Provider Allergies No known active allergies Medications omeprazole (PriLOSEC) 20 mg capsule Take 1 capsule (20 mg total) by mouth daily. 30 capsule 05/26/2018 Active Active Problems Problem Noted Date Diagnosed Date Sprain of medial collateral ligament of right kn ee 12/26/2021 Social History Tobacco Use Types Packs/Day Years Used Date Smoking Tobacco: Never Smokeless Tobacco: Never Tobacco Cessation:Counseling Given: Not Answered Alcohol Use Standard Drinks/Week Comments Not Currently 0 (1 standard drink = 0.6 oz pur e alcohol) Personal Safety Answer Date Recorded Have you ever been in or are you currently in a harmful physical or emotional relationship or is someone making you feel afraid or unsafe? Denies 09/22/2023 Comments No Sex and Gender Information Value Date Recorded Sex Assigned at Not on file Legal Sex Female 5:51 PM NEWSPAPER WRITER Gender Identity Not on file Sexual Orientation Not on file Last Filed Vital Signs Vital Sign Reading Time Taken Comments Blood Pressure 117/75 09/22/2023 1:00 AM NEWSPAPER WRITER Pulse 70 09/22/2023 1:00 AM NEWSPAPER WRITER Temperature 36.6 C (97.9 F) 09/22/2023 12:32 AM NEWSPAPER WRITER Respiratory Rate 16 09/22/2023 12:32 AM NEWSPAPER WRITER Oxygen Saturation 95% 09/22/2023 1:00 AM NEWSPAPER WRITER Inhaled Oxygen Concentration - - Weight 94.3 kg (208 lb) 09/22/2023 12:32 AM NEWSPAPER WRITER Height 162.6 cm (5' 4 ) 12/26/2021 6:18 PM NEWSPAPER WRITER Body Mass Index 35.7 12/26/2021 6:18 PM NEWSPAPER WRITER Plan of Treatment Not on file Insurance [facility] Care Teams Rn Field Case Manager Relationship Specialty Start Date End Date No, Physician PCP - General 05/26/18
--- OUTSIDE RECORDS SUMMARY | 2025-01-27 01:45 | XMS_ITS | Clinical Summary ---
Author Organization [facility] [employer] Address [address] [place] [address] Care Team Providers Care Pv Design And Installation Technician Name Role Phone Unavailable Primary Care Provider Unavailabl e Source Comments [facility] [facility],non-owned Affiliates and Associated Physician Practices is amultiple site organization consisting of ambulatory clinics and hospital sitesin [place], [place], [place] and [place]. This disclosure is being madepursuant to the Care Everywhere program and may not contain all information available regarding this patient. Last updated 18.[employer] [facility] Allergies No known active allergies Active Problems Problem Noted Date Diagnosed Date Encounter for repeat ultraso und of pyelectasis, antepartum 01/26/2021 Social History Tobacco Use Types Packs/Day Years Used Date Smoking Tobacco: Never Assessed Sex and Gender Information Value Date Recorded Sex Assigned at Not on file Gender Identity Not on file Sexual Orientation Not on file Plan of Treatment Health Maintenance Due Date Last Done Comments PAP SMEAR 1997 HIV SCREENING 2012 HEPATITIS C SCREENING 10/27/2015 DTAP/TDAP/TD VACCINES (1 - Tdap) 2016 HEPATITIS B VACCINE (1 of 3 - 19+ 3-dose series) 2016 COVID-19 VACCINE ( - 2023-2 5 season) 2024 INFLUENZA VACCINE (#1) 2024 5, 09/01/2014, 09/12/2011 DEPRESSION SCREENING 10/30/2024 ZOSTER VACCINE (1 of 2) 2047 HIB VACCINE Aged Out No longer eligi ble based on patient's age to complete this topic HPV VACCINE Aged Out No longer eligi ble based on patient's age to complete this topic MENINGOCOCCAL (Group B) VACCINE SHARED DECISION-MAKING Aged Out No longer eligible based on patient's age to complete this topic MENINGOCOCCAL GROUPS A/C/Y/W VACCINE Aged Out No longer eligible b ased on patient's age to complete this topic PNEUMOCOCCAL VACCINE Aged Out No long er eligible based on patient's age to complete this topic
--- OUTSIDE RECORDS SUMMARY | 2025-01-27 01:45 | XMS_ITS | Clinical Summary ---
Author Organization [facility] Address [address] [place] [address] Care Team Providers Care Hydro Generation Manager Name Role Phone No, Physician Primary Care Provider [phone] Allergies No known active allergies Medications omeprazole (PriLOSEC) 20 mg capsule Take 1 capsule (20 mg total) by mouth daily. 30 capsule 05/26/2018 Active Active Problems Problem Noted Date Diagnosed Date Sprain of medial collateral ligament of right kn ee 12/26/2021 Medical History Medical History Date Comments Asthma Social History Tobacco Use Types Packs/Day Years [...] on file Legal Sex Female 5:51 PM SERVICE COORDINATOR Gender Identity Not on file Sexual Orientation Not on file Obstetrics History Para Term AB IAB SAB Ectopic Multiple Livin g Live Births 1 Date Outcome GA Total Labor Labor/2nd/3rd Weight Sex Type Anes PTL Yarely A1 A5 Name Clin Last Filed Vital Signs Vital Sign Reading Time Taken Comments Blood Pressure 117/75 09/22/2023 1:00 AM SERVICE COORDINATOR Pulse 70 09/22/2023 1:00 AM SERVICE COORDINATOR Temperature 36.6 C (97.9 F) 09/22/2023 12:32 AM SERVICE COORDINATOR Respiratory Rate 16 09/22/2023 12:32 AM SERVICE COORDINATOR Oxygen Saturation 95% 09/22/2023 1:00 AM SERVICE COORDINATOR Inhaled Oxygen Concentration - - Weight 94.3 kg (208 lb) 09/22/2023 12:32 AM SERVICE COORDINATOR Height 162.6 cm (5' 4 ) 12/26/2021 6:18 PM SERVICE COORDINATOR Body Mass Index 35.7 12/26/2021 6:18 PM SERVICE COORDINATOR Plan of Treatment Health Maintenance Due Date Last Done Comments Cervical Cancer Screening 1997 Depression Screening 1997 Hepatitis C Screening 1997 Varicella Vaccines (1 of 2 - 13+ 2-dose series) 2010 Regular Well Visit/Exam 18-64 2015 Covid-19 Vaccine ( season) 2024 07/21/2021, 06/30/2021 Influenza Vaccine (#1) 2024 5, 09/01/2014, 09/12/2011, Additional history exists DTaP/Tdap/Td Vaccine (8 - Td or Tdap) 05/30/2031 05/30/2021, 04/16/2009, 12/11/2001, Additional history exists Hepatitis B Screening Completed 05/14/1998 , 01/12/1998, 1997 HPV Vaccines Completed 06/24/2011, 04/2010, 06/22/2010 Pneumococcal vaccine <65 Aged Out No longer eligible based on patient's age to complete this topic Insurance [employer] [facility] Care Teams Hydro Generation Manager Relationship Specialty Start Date End Date No, Physician PCP - General 05/26/18
[2025-01-27] MEDS: LACTATED RINGERS 1,000 ML 30 ML IV CONT ×2 (06:31→08:34)
[2025-01-27] MEDS: KETOROLAC 15 MG/ML VIAL (*BKC) IV PUSH (06:36)
[2025-01-27] MEDS: ACETAMINOPHEN 500 MG TABLET 1000 MG PO (06:38)
--- NOTE | 2025-01-27 06:54 | WPDANESEPPF ---
Anes - Initial Pre Proc Eval Procedure: Operation Date: 01/27/25 07:30 Proposed Procedures p Laparoscopic Bilateral Salpingectomy - Batsheva Copeland MD Date/Time: 01/27/25 06:54 Surgeon: Batsheva Copeland MD Pre Op Diagnosis: desired sterilization Patient Data Age: 29 Gender: F Height: 1.63 m Weight: 82.2 kg Last Vital Signs Temp 36.7 C 01/27/25 06:06 Pulse 83 01/27/25 06:06 Resp 16 01/27/25 06:06 BP 114/67 01/27/25 06:06 Pulse Ox 98 01/27/25 06:06 O2 Del Method Room Air 01/27/25 06:06 Allergies Allergy/AdvReac Type Severity Reaction Status Date / Time No Known Allergies Allergy Verified 01/27/25 06:17 Home Medications ?Medication ?Instructions ?Recorded ?Confirmed ?Type levonorgestrel (Mirena) 1 device intrauterine ONCE 11/30/22 01/15/25 History multivitamin (Daily Multi-Vitamin 1 tablet PO DAILY 01/15/25 01/27/25 History tablet) Patient hx anesthesia problems: none Family hx anesthesia problems: none Results Review: All pre-operative results and documents have been reviewed as part of the pre-operative evaluation. [facility] Past Medical History Medical History (Updated 01/26/25 @ 20:17 by Batsheva Copeland MD) Back pain Asthma Obesity Migraines, neuralgic Sexually transmissible disease Encounter for insertion of mirena IUD 11/30/2022 Surveillance for Depo-Provera contraception Family History Family History Other Unknown family medical history Social History Social History (Updated 11/26/24 @ 15:14 by Kei Glass MA) Smoking status: Current every day smoker Tobacco type: e-cigarettes/vaping Second hand tobacco smoke exposure: No Smoking end date: 12/28/20 Alcohol intake: former Alcohol use details: rarely Substance use: never Substance use type: does not use Do You Feel Safe in your Home?: Yes Lack of Transportation: No Lack of Food: Never True Current Housing: I Have Housing Concerned About Future Housing: No Difficulty Paying Gas/Electric Bills: No Difficulty Paying for Meds: No Currently Unemployed: No Education: High School Diploma/GED Difficulty w/ Childcare or Family Care: No Living arrangements: with family Occupation/Education: occupation Additional occupation/education comments: [employer] Gender identity (if verbalized by the patient): Female Sexual Orientation (if Verbalized by the Patient): Straight or Heterosexual Spiritual care concerns: No Anes - Eval Final PreProcedure Day of Procedure 01/27/25 06:54 Patient weight: obese Heart: regular rate and rhythm Lungs: clear to auscultation Airway: Mallampati scale class II Neurological: alert and oriented Last oral intake: >/= 8 hours ASA classification: II Emergent: no Anesthetic plan: proceed Anesthesia type and monitoring: general ETT and standard monitoring Results Review: All pre-operative results and documents have been reviewed as part of the pre-operative evaluation. Informed Consent: The patient's anesthetic plan and its attendant risks and benefits were discussed with the patient/family/POA. Questions were solicited and answers provided to the satisfaction of the patient/family/POA.
--- NOTE | 2025-01-27 07:10 | WPDHPUPDATE1 ---
History and Physical Update Update Date/Time: 01/27/25 07:10 History and Physical has been reviewed, including an updated exam of the patient. There are NO changes in the patient's condition. Risks, benefits, and alternatives have been discussed and questions answered. Patient agrees to proceed with bilateral salpingectomy..
[2025-01-27 07:14] LABS: BEDSIDEPREGUCG Negative (Negative)
[2025-01-27] MEDS: BUPIVACAINE/EPINEPHRINE 0.5% 50 ML VIAL 20 ML INFILTRATE (08:10)
--- NOTE | 2025-01-27 08:16 | P.OP_ITS ---
Procedure Note - Detailed Date of Procedure 01/27/25 Pre-op Diagnosis desired sterilization Post-op Diagnosis Same Procedure Performed Laparoscopic bilateral salpingectomy Surgeon Batsheva Copeland MD [employer] Mildred Ovalles Anesthesia General and Local (30cc of 0.5% marcaine w/ epi) Findings Normal cervix, IUD strings visualized. Normal left ovarian ovulation cyst. Normal right ovary. Normal fallopian tubes bilaterally. Normal appearing uterus. Good hemostasis at end of case. Description of Procedure Kinza was taken to the operating room where she was placed under general endotracheal anesthesia without complications. She was then prepped and draped in the usual sterile fashion in the dorsal lithotomy position with her legs in low Curtis stirrups and her arms tucked at her side with a strap over her chest. A time-out was performed and no preoperative antibiotics were indicated. My attention was turned down below where her bladder was drained via straight catheterization. A bivalve speculum was then placed within the vagina where the cervix was easily identified. The anterior lip of the cervix was grasped with a single-tooth tenaculum and an acorn uterine manipulator was placed without complications. My gloves were changed and my attention was turned to her abdomen. An umbilical incision was made, and a 5 mm trocar was placed under direct visualization without complications. Once intra-abdominal placement was confirmed the abdomen was insufflated with carbon dioxide gas. She was then placed in Trendelenburg and two additional 5 mm ports were placed in the left and right lower quadrants under direct visualization without complications. The above findings were noted. The left fallopian tube was then elevated and the mesosalpinx was serially clamped, coagulated, transected using the LigaSure device until the proximal end of the fallopian tube was reached. The proximal end of the fallopian tube was cross clamped, coagulated and transected. The tube was then removed from the abdomen. The same procedure was then performed on the right side without any complications. Good hemostasis was noted. All instruments were removed from the abdomen. The insufflation was released and the trocars were removed. The 3 laparoscopic incision sites were reapproximated using 4-0 Monocryl and covered with Dermabond. The incisions were then infiltrated using 0.5% Marcaine with epinephrine. The uterine manipulator was removed. Sponge, lap, instrument, and needle counts were correct at the end of the procedure. Patient was awoken from general anesthesia and taken to recovery with plans of same-day discharge home. Estimated Blood Loss 10 IV Fluids 900 Urine Output 50 Pathology Yes (left and right fallopian tubes) Complications No immediate complications Condition Stable Disposition Same day [facility] Billing Surgery - Charge Forward: Surgery Billing
[2025-01-27] MEDS: oxyCODONE HCL (*CRX) 5 MG TAB IR PO (09:49)
== END 2025-01-27 10:30 | disposition home or self-care (01) ==
PROVIDERS: Visit Provider Obstetrics & Gynecology
PROC: (CPT 49320; principal; 2025-01-27 07:30)
DX: Z30.2 Encounter for sterilization (principal); N83.8 Other noninflammatory disorders of ovary, fallopian tube and broad ligament; J45.909 Unspecified asthma, uncomplicated; F17.290 Nicotine dependence, other tobacco product, uncomplicated; E66.9 Obesity, unspecified; Z68.31 Body mass index [BMI] 31.0-31.9, adult
CPT/HCPCS: 58661; 88302; A9270; J1100; J1885; J2003; J2250; J2405; J2704; J3010; J7030; J7120